=== PATIENT | female | born 1965 | race Caucasian/White ===

== ENCOUNTER 2017-01-15 18:16 | Emergency (ER) | payer BC ==
[~2017-01-15] VITALS: Ht 162.6 cm; Wt 104.0 kg
[~2017-01-15 18:16] MED LIST: CIPROFLOXACN750 MG PO; FLEXERIL PO; LORTAB 5/3255 MG PO; METRONIDAZOL500 MG PO; ONDANSETRON4 MG PO; PREVACID30 M2 PO; ULTRAM50 M1 PO
[2017-01-15 19:05] LABS: INFLUENZA A NONE DETECTED (NONE DETECT); INFLUENZA B NONE DETECTED (NONE DETECT)
[2017-01-15] MEDS ORDERED: AUGMENTIN875TAB PO (19:44)
[2017-01-15 19:57] VITALS: BP 133/73
== END 2017-01-15 19:57 | disposition home or self-care (01) | DRG 153 ==
LOC: ED 18:16
PROVIDERS: Emergency Medicine
DX: J02.0 Streptococcal pharyngitis (principal)

== ENCOUNTER 2022-01-03 19:49 | Emergency (ER) | payer SELFPAY ==
[~2022-01-03] VITALS: Ht 162.6 cm; Wt 109.0 kg
[~2022-01-03 19:49] MED LIST changes: +AUGMENTIN875TAB PO
[2022-01-03 20:12] VITALS: BP 123/82
== END 2022-01-03 21:50 | disposition home or self-care (01) | DRG 605 ==
LOC: ED 19:49
DX: S90.512A Abrasion, left ankle, initial encounter (principal); S80.812A Abrasion, left lower leg, initial encounter; S93.402A Sprain of unspecified ligament of left ankle, initial encounter; S93.602A Unspecified sprain of left foot, initial encounter; W16.612A Jumping or diving into natural body of water striking water surface causing other injury, initial encounter; Y93.89 Activity, other specified; Y92.828 Other wilderness area as the place of occurrence of the external cause

== ENCOUNTER 2024-04-12 14:19 | Emergency (ER) | payer SELFPAY ==
[~2024-04-12] VITALS: Ht 162.6 cm; Wt 113.5 kg
[2024-04-12] MEDS ORDERED: PENICILLN VK500 MG PO (16:02)
[2024-04-12 17:38] VITALS: BP 133/80
[2024-04-12] MEDS ORDERED: NAPROXEN 250 MG/TAB PO ONE (18:55)
== END 2024-04-12 20:30 | disposition home or self-care (01) | DRG 156 ==
LOC: ED 14:19
DX: K11.20 Sialoadenitis, unspecified (principal); K08.409 Partial loss of teeth, unspecified cause, unspecified class